=== PATIENT | male | born 1995 | race American Indian/Alaskan Native ===

== ENCOUNTER 2018-07-21 03:32 | Emergency (ER) | payer SELFPAY ==
[2018-07-21] MEDS ORDERED: MOTRIN PO ONE ×2 (03:43→03:48)
--- NOTE | 2018-07-21 08:23 | Emergency Department Report ---
HPI - General Chief Complaint: Upper Respiratory Infection Time Seen by Provider: 07/21/18 08:01 - HPI HPI: 23-year-old -[place] male presents to the emergency department with a complaint of developing some chills and body aches overnight. He has pain in the lower back but also describes it as more of a general soreness. He denies any numbness or paresthesias, problems with bowel or bladder, or any neurological deficits. He has not taken anything for his symptoms prior to arrival. He denies any cough, sore throat, shortness of breath, rash. No past medical history. He just recently moved here from [facility] and therefore does not have a local primary care physician. ED Past Medical Hx - Past Medical History Previous Medical History?: No - Surgical History Past Surgical History?: No - Social History Smoking Status: Former Smoker Substance Use Type: None - Medications Home Medications: Home Medications Medication Instructions Recorded Confirmed Last Taken Type Ibuprofen [Motrin] 600 mg PO Q8H PRN #20 tablet 07/21/18 Unknown Rx ED Review of Systems ROS: Stated complaint: FLU LIKE SXS Other details as noted in HPI Comment: All other systems reviewed and negative Constitutional: chills, fever (subjective) Eyes: denies: eye pain, eye discharge, vision change ENT: denies: ear pain, throat pain Respiratory: denies: cough, shortness of breath Cardiovascular: denies: chest pain, palpitations Gastrointestinal: denies: abdominal pain, vomiting Genitourinary: denies: dysuria, discharge Musculoskeletal: back pain, myalgia Skin: denies: rash, lesions Neurological: denies: headache, weakness Physical Exam - Physical Exam Physical Exam: GENERAL: The patient is well-developed well-nourished. HEENT: Normocephalic. Atraumatic. Patient has moist mucous membranes. Oropharynx is clear without tonsillar hypertrophy, erythema or exudates. EYES: Extraocular motions are intact. Pupils are equal and reactive to light bilaterally. NECK: Supple. Trachea is midline. CHEST/LUNGS: Clear to auscultation. There is no respiratory distress noted. HEART/CARDIOVASCULAR: Regular. There is no tachycardia. There is no obvious murmur. ABDOMEN: Abdomen is soft, nontender. Patient has normal bowel sounds. There is no abdominal distention. SKIN: Skin is warm and dry. NEURO: The patient is awake, alert, and oriented. The patient is cooperative. The patient has no focal neurologic deficits. The patient has normal speech. MUSCULOSKELETAL: There is no tenderness or deformity. There is no limitation range of motion. There is no evidence of acute injury. ED Medical Decision Making - Medical Decision Making Patient presents with the acute onset of some chills, subjective fever and body aches including low back pain. He was negative for influenza. No other focus of fever or infection seen on physical examination. Despite his low back pain, he does not have any numbness or paresthesias, problems with bowel or bladder, or any neurological deficits. Low suspicion for any of the emergent conditions such as cauda equina, epidural abscess or cord compression syndrome. Now it seems most consistent with a viral syndrome. He has been given some anti- inflammatories to help with any fever and/or discomfort. He has been given referrals for primary care. He will return to the ER with any worsening of his symptoms, development of new symptoms, or if any acute distress. - Differential Diagnosis influenza, nonspecific viral syndrome, pneumonia Critical Care Time: No Critical care attestation.: If time is entered above; I have spent that time in minutes in the direct care of this critically ill patient, excluding procedure time. ED Disposition Clinical Impression: Chills, Body aches, Viral syndrome Disposition: TO HOME OR SELFCARE Is pt being admited?: No Condition: Stable Instructions: Viral Syndrome (ED) Additional Instructions: Please follow up with a primary care physician. Return to the emergency Department with any worsening of your symptoms or any acute distress. You can take Tylenol every 4 hours and ibuprofen every 6 hours, using weight- based dosing on the back of the bottle, as needed for fever or discomfort. Prescriptions: Ibuprofen [Motrin] 600 mg PO Q8H PRN #20 tablet PRN Reason: Pain Referrals: RAYSA GOMEZ MD [Primary Care Provider] - 3-5 Days AYAN VIVAS DO [Staff Physician] - 3-5 Days TATIANNA CEDEÑO MD [Staff Physician] - 3-5 Days [facility] [Outside] - 3-5 Days Forms: Accompanied Note Time of Disposition: 09:03
[2018-07-21 08:29] VITALS: BP 109/70
== END 2018-07-21 09:16 | disposition home or self-care (01) ==
LOC: ED 03:32
DX: B34.9 Viral infection, unspecified (principal)
CPT/HCPCS: 87400; 99283